=== PATIENT | female | born 1975 | race Caucasian/White ===

== ENCOUNTER 2017-03-24 06:47 | Inpatient (IN) | payer OTHER ==
[~2017-03-24] VITALS: Ht 157.5 cm; Wt 52.2 kg
[~2017-03-24 06:47] MED LIST: BACITRACIN 50,000 UNIT ONE; BUPIVACAINE/PF-EPI 0.5% 1:200K ONE; THROMBIN 5,000 UNIT VIAL TP ONE; VANCOMYCIN 1,000 MG ONE
[2017-03-24] MEDS ORDERED: FLUT15.88 NAS (07:40)
[2017-03-24] MEDS ORDERED: GABA300C10 PO (07:40)
[2017-03-24] MEDS ORDERED: QUET200T4 PO (07:40)
[2017-03-24] MEDS ORDERED: OXYB5TAB7 PO (07:40)
[2017-03-24] MEDS ORDERED: DICL75TA2 PO (07:40)
[2017-03-24] MEDS ORDERED: LEVO112T4 PO (07:40)
[2017-03-24] MEDS ORDERED: AMIT25TA PO (07:40)
[2017-03-24 07:41] VITALS: BP 126/83
[2017-03-24] MEDS ORDERED: LACTATED RINGERS 1,000 ML IV SCH (07:50)
[2017-03-24] MEDS ORDERED: FENTANYL PF 250 MCG/5ML ONE (09:10)
[2017-03-24] MEDS ORDERED: MIDAZOLAM 1 MG/ML, 2ML ONE (09:10)
[2017-03-24] MEDS ORDERED: SCOPOLAMINE PATCH, 1.5MG PATCH.TD72 TD ONE ×2 (09:53)
[2017-03-24] MEDS ORDERED: SUCCINYLCHOLINE 20 MG/ML, 10ML ONE (10:01)
[2017-03-24] MEDS ORDERED: ONDANSETRON 2MG/ML, 2ML ONE (10:01)
[2017-03-24] MEDS ORDERED: KETOROLAC 30 MG/1 ML ONE (10:01)
[2017-03-24] MEDS ORDERED: CEFAZOLIN 1,000 MG ONE (10:01)
[2017-03-24] MEDS ORDERED: METOCLOPRAMIDE 5 MG/ML, 2ML ONE (10:01)
[2017-03-24] MEDS ORDERED: PROPOFOL 10 MG/ML, 20ML ONE (10:01)
[2017-03-24] MEDS ORDERED: DEXAMETHASONE 4 MG/ML, 1ML ONE (10:01)
[2017-03-24] MEDS ORDERED: HYDROmorphone PCA 30 MG/30 ML ONE (11:47)
[2017-03-24] MEDS: HYDROmorphone PCA 30 MG/30 ML IV PRN ×2 (12:02→20:06)
[2017-03-24] MEDS ORDERED: DIPHENHYDRAMINE 50 MG/ML, 1ML IVPush PRN (14:00)
[2017-03-24] MEDS ORDERED: HYDROcodone/APAP 5/325 TABLET PO PRN (14:00)
[2017-03-24] MEDS ORDERED: SENNA/DOCUSATE TABLET PO PRN (14:00)
[2017-03-24] MEDS ORDERED: MAGNESIUM HYDROXIDE 8%, 30ML UDC PO PRN (14:00)
[2017-03-24] MEDS ORDERED: ONDANSETRON 2MG/ML, 2ML IV PRN (14:00)
[2017-03-24] MEDS ORDERED: BISACODYL 10 MG SUPP PR PRN (14:00)
[2017-03-24] MEDS: GABAPENTIN 300 MG CAPSULE PO SCH ×2 (15:21→20:00)
[2017-03-24] MEDS: NS + 20MEQ KCL 1,000 ML IV SCH (15:21)
[2017-03-24] MEDS: CEFAZOLIN PMX 1GM/50ML 50 ML IVPB SCH (18:14)
[2017-03-24 18:38] VITALS: BP 122/63
[2017-03-24] MEDS: DIPHENHYDRAMINE 25 MG CAPSULE PO PRN (19:58)
[2017-03-24] MEDS: OXYcodone/APAP 5/325MG TABLET PO PRN (19:58)
[2017-03-24] MEDS: FLUTICASONE NASAL SPRAY 16GM NAS SCH (19:59)
[2017-03-24] MEDS: OXYBUTYNIN CHLORIDE 5 MG TABLET PO SCH (20:00)
[2017-03-24] MEDS: AMITRIPTYLINE 25 MG TABLET PO SCH (20:00)
[2017-03-24] MEDS: QUETIAPINE 100MG TABLET PO SCH (20:01)
[2017-03-25 00:50] VITALS: BP 101/67
[2017-03-25] MEDS: CEFAZOLIN PMX 1GM/50ML 50 ML IVPB SCH (01:46)
[2017-03-25] MEDS: OXYcodone/APAP 5/325MG TABLET PO PRN ×5 (01:49→20:55)
[2017-03-25] MEDS: HYDROmorphone PCA 30 MG/30 ML IV PRN (02:00)
[2017-03-25] MEDS: NS + 20MEQ KCL 1,000 ML IV SCH ×2 (02:30→15:29)
[2017-03-25 04:30] VITALS: BP 106/69
[2017-03-25] MEDS: TIZANIDINE 4MG TABLET PO PRN ×3 (04:32→18:32)
[2017-03-25] MEDS: LEVOTHYROXINE 112 MCG TABLET PO SCH (06:22)
[2017-03-25 06:40] LABS: BLOOD UREA NITROGEN 5 mg/dL (7-18)
[2017-03-25 08:05] VITALS: BP 95/59
[2017-03-25] MEDS: morphine SULFATE 10 MG/ML, 1ML IV PRN ×3 (08:12→12:41)
[2017-03-25] MEDS: DIPHENHYDRAMINE 25 MG CAPSULE PO PRN ×2 (08:13→15:27)
[2017-03-25] MEDS: FLUTICASONE NASAL SPRAY 16GM NAS SCH ×2 (09:56→20:54)
[2017-03-25] MEDS: GABAPENTIN 300 MG CAPSULE PO SCH ×3 (09:57→20:55)
[2017-03-25] MEDS: OXYBUTYNIN CHLORIDE 5 MG TABLET PO SCH ×2 (09:58→20:55)
[2017-03-25 14:47] VITALS: BP 104/70
[2017-03-25] MEDS ORDERED: methylPREDNISolone 4mg DOSE PACK PO ONE (17:00)
[2017-03-25] MEDS ORDERED: hydrOXyzine 10 MG/5 ML ORAL SOL PO PRN (17:00)
[2017-03-25 18:28] VITALS: BP 109/74
[2017-03-25] MEDS: QUETIAPINE 100MG TABLET PO SCH (20:55)
[2017-03-25] MEDS: AMITRIPTYLINE 25 MG TABLET PO SCH (20:55)
[2017-03-26] MEDS: NS + 20MEQ KCL 1,000 ML IV SCH (03:18)
[2017-03-26] MEDS: OXYcodone/APAP 5/325MG TABLET PO PRN ×2 (03:34→08:06)
[2017-03-26 03:41] VITALS: BP 112/74
[2017-03-26] MEDS: LEVOTHYROXINE 112 MCG TABLET PO SCH (05:08)
[2017-03-26 06:52] VITALS: BP 113/71
[2017-03-26] MEDS: TIZANIDINE 4MG TABLET PO PRN (08:07)
[2017-03-26] MEDS: GABAPENTIN 300 MG CAPSULE PO SCH (08:08)
[2017-03-26] MEDS: OXYBUTYNIN CHLORIDE 5 MG TABLET PO SCH (08:08)
[2017-03-26] MEDS: FLUTICASONE NASAL SPRAY 16GM NAS SCH (08:09)
[2017-03-26] MEDS ORDERED: OXYC-302 PO (09:19)
[2017-03-26] MEDS ORDERED: TIZA4CAP2 PO (09:23)
== END 2017-03-26 10:50 | disposition home or self-care (01) | DRG 517 ==
LOC: ORIP 06:47 → 4NOR 13:28 → DCLOUNGE 03-26 10:34
PROVIDERS: ADMIT Neurological Surgery; ATTEND Neurological Surgery
PROC: 0SP004Z Removal of Internal Fixation Device from Lumbar Vertebral Joint, Open Approach (ICD-10-PCS; 2017-03-24)
PROC: 0SP304Z Removal of Internal Fixation Device from Lumbosacral Joint, Open Approach (ICD-10-PCS; principal; 2017-03-24 10:00)
DX: T84.84XA Pain due to internal orthopedic prosthetic devices, implants and grafts, initial encounter (principal); Y83.8 Other surgical procedures as the cause of abnormal reaction of the patient, or of later complication, without mention of misadventure at the time of the procedure; M54.5 Low back pain; F32.9 Major depressive disorder, single episode, unspecified; M54.16 Radiculopathy, lumbar region; Z98.1 Arthrodesis status; Z88.2 Allergy status to sulfonamides; Y92.89 Other specified places as the place of occurrence of the external cause; Z88.6 Allergy status to analgesic agent; Z88.8 Allergy status to other drugs, medicaments and biological substances; Z82.61 Family history of arthritis; Z83.3 Family history of diabetes mellitus; Z81.8 Family history of other mental and behavioral disorders; Z82.49 Family history of ischemic heart disease and other diseases of the circulatory system
CPT/HCPCS: 36415; 80048; 85025; 95938; 95941; J0690; J1100; J1170; J1885; J2250; J2405; J2704; J3010; J3370; J3480; J7509; J0330; J1200; J2270; J2765; J7120; Q0163; Q0177